=== PATIENT | male | born 2000 | race Two or more races ===

== ENCOUNTER 2023-09-24 10:39 | Emergency (ER) | payer OTHER ==
[~2023-09-24] VITALS: Ht 188 cm; Wt 97.5 kg
== END 2023-09-24 13:45 | disposition home or self-care (01) ==
LOC: ER 10:39
DX: J22 Unspecified acute lower respiratory infection (principal); J10.1 Influenza due to other identified influenza virus with other respiratory manifestations; Z20.822 Contact with and (suspected) exposure to COVID-19